=== PATIENT | female | born 1955 | race Caucasian/White ===

== ENCOUNTER → 2019-09-24 | Emergency (ER) | payer BC | END | disposition left against medical advice (07) | LOC: ER 22:20 | DX: R69 Illness, unspecified (principal) ==

== ENCOUNTER 2021-07-30 15:04 | Emergency (ER) | payer BC, OTHER ==
[~2021-07-30] VITALS: Ht 157.5 cm; Wt 99.8 kg
[2021-07-30] MEDS ORDERED: KETOROLAC TROMETHAMINE 30 MG/ML VIAL IM STA (16:24)
[2021-07-30] MEDS ORDERED: ONDANSETRON HCL 4 MG ORAL DISINTEGRATING TAB PO ONE (16:30)
[2021-07-30] MEDS ORDERED: KETOROLAC TROMETHAMINE 30 MG/ML VIAL ONE (16:38)
[2021-07-30] MEDS ORDERED: ONDANSETRON HCL 4 MG ORAL DISINTEGRATING TAB ONE (16:39)
[2021-07-30] MEDS ORDERED: HYDROCODONE/APAP 5MG-325MG TAB PO ONE (19:30)
[2021-07-30] MEDS ORDERED: HYDROCODON-ACE1 EA12 PO (20:00)
[2021-07-30] MEDS ORDERED: METHOCARBAMOL500 MG PO (20:07)
[2021-07-30] MEDS ORDERED: GABAPENTIN100 MG PO (20:09)
[2021-07-30] MEDS ORDERED: HYDROCODONE/APAP 5MG-325MG TAB ONE (20:09)
== END 2021-07-30 20:40 | disposition home or self-care (01) ==
LOC: FSED 16:11
DX: S32.019A Unspecified fracture of first lumbar vertebra, initial encounter for closed fracture (principal); S32.029A Unspecified fracture of second lumbar vertebra, initial encounter for closed fracture; S93.402A Sprain of unspecified ligament of left ankle, initial encounter; S20.219A Contusion of unspecified front wall of thorax, initial encounter; V48.4XXA Person boarding or alighting a car injured in noncollision transport accident, initial encounter; Y92.89 Other specified places as the place of occurrence of the external cause; Z88.0 Allergy status to penicillin
CPT/HCPCS: 71250; 72128; 72131; 73610; 96372; 99284; J1885; Q0162